=== PATIENT | female | born 1955 | race Caucasian/White ===

== ENCOUNTER 2019-09-09 08:29 | Outpatient (CLI) | payer MEDICARE, MEDICAID, SELFPAY | END 2019-09-09 08:30 | disposition home or self-care (01) | LOC: RAD 08:33 | PROVIDERS: Visit Provider Internal Medicine Critical Care Medicine | DX: J44.9 Chronic obstructive pulmonary disease, unspecified (principal) | CPT/HCPCS: 94010 ==

== ENCOUNTER → 2020-06-15 15:16 | Outpatient (BNVA) | payer MEDICARE, MEDICAID, SELFPAY | PROVIDERS: Visit Provider Nurse Practitioner | DX: S69.90XA Unspecified injury of unspecified wrist, hand and finger(s), initial encounter (principal) | CPT/HCPCS: 73110 ==

== ENCOUNTER → 2023-01-29 14:49 | Outpatient (BNVA) | payer MEDICARE, MEDICAID, SELFPAY | PROVIDERS: PCP Family Medicine | DX: S60.021A Contusion of right index finger without damage to nail, initial encounter (principal); X58.XXXA Exposure to other specified factors, initial encounter | CPT/HCPCS: 73130 ==

== ENCOUNTER 2023-02-19 13:26 | Emergency (ER) | payer MEDICARE, MEDICAID, SELFPAY ==
[2023-02-19] VITALS (7 sets, daily range): BP systolic 118–153; BP diastolic 77–93; PULSE 68–87; RESP 14–18; TEMP 36.7; O2SAT 93–98
--- NOTE | 2023-02-19 14:01 | XR_ITS ---
WS: [id number] EXAMINATION: XR chest 1V portable [id number] REASON FOR EXAM: chest pain COMPARISON: 02/24/2019 ORDER DATE: 02/19/2023 2:01 PM TECHNIQUE: A single, portable frontal chest x-ray was obtained. X-RAY FINDINGS: The lungs are clear. Pleural spaces are clear. No pleural effusions or pneumothorax. Cardiomediastinal silhouette is unremarkable except for very minimal atherosclerotic aortic arch sullivan ge. No evidence for pulmonary edema. Soft tissue and osseous structures are unremarkable. No tubes or lines are present. XR/XR chest 1V portable [id number] IMPRESSION: Unremarkable frontal portable chest x-ray.
[2023-02-19 14:16] LABS: Basophils # 0.1 10^3/uL (0.0-0.1); Basophils % 1.1 %; Eosinophils # 0.5 10^3/uL (0.0-0.8); Eosinophils % 5.9 %; Hematocrit 41.7 % (37.0-47.0); Hemoglobin 13.6 g/dL (11.5-15.3); Lymphocytes # 2.5 10^3/uL (0.8-4.8); Lymphocytes % 31.3 %; Mean Corpuscular HGB Conc 32.6 g/dL (30.0-36.0); Mean Corpuscular Hemoglobin 29.6 pg (28.0-34.0); Mean Corpuscular Volume 90.7 fl (81-99); Mean Platelet Volume 9.7 fL (7.4-10.4); Monocytes # 0.7 10^3/uL (0.2-0.9); Monocytes % 8.7 %; Neutrophils # 4.15 10^3/uL (1.8-7.7); Neutrophils % 52.7 %; Nucleated Red Blood Cells % 0 %; Platelet Count 288 10^3/cmm (130-400); Red Cell Distribution Width 13.4 % (12.1-15.1); White Blood Count 7.9 10^3/uL (4.0-10.0)
[2023-02-19] MEDS: ondansetron 2 mg/ML SDV 2 mL 4 MG IVP (14:16)
[2023-02-19] MEDS: aspirin 81 mg Chew Tablet 324 MG PO (14:17)
[2023-02-19 14:22] LABS: Alanine Aminotransferase 22 U/L (0-33); Albumin Level 4.4 g/dL (3.5-5.2); Alkaline Phosphatase 125 U/L (35-105); Anion Gap 15.2 (5-19); Aspartate Amino Transferase 17 U/L (0-32); Blood Urea Nitrogen 10 mg/dL (8-23); Calcium 9.2 mg/dL (8.5-10.5); Carbon Dioxide 23 mmol/L (22-29); Chloride 103 mmol/L (98-107); Globulin 3.3 g/dL (1.3-4.6); Glomerular Filtration Rate 55.6 mL/min (90-130); Glucose 97 mg/dL (65-115); Osmolality Calculated 283 mOsm/kg (285-295); Potassium 4.2 mmol/L (3.5-5.1); Sodium 137 mmol/L (136-145); Total Bilirubin 0.3 mg/dL (0.15-1.2); Total Protein 7.7 g/dL (6.6-8.7)
[2023-02-19 14:23] LABS: Troponin(5th) Baseline 6 ng/L (0-10)
--- NOTE | 2023-02-19 14:23 | W.ED.CHESTPA ---
HPI - Chest Pain General: Chief Complaint: Chest Pain Stated Complaint: Chest Pains Time Seen by Provider: 02/19/23 14:00 Source: patient Mode of arrival: ambulatory History of Present Illness: 67-year-old female presents emergency room complaining of chest pain. States began about 45 minutes to an hour ago while she was cooking in her kitchen she not doing anything exertional. She not been having any pain prior to that. She does relate she has a history of coronary artery disease she had a heart attack approximately 14 years ago at [facility]. She tells me she had an angiogram done but did not have any stents or bypass. She is not sure why this was the case. She is continuing to have some moderate chest discomfort at this time she reports it radiates up into her jaw. She has not had any associated shortness of breath with that. Also radiates slightly into her back and shoulder blades. MD complaint: chest pain and chest heaviness Onset (ago): minute(s) Timing of current episode: episodic Prior episodes: No Onset: during rest Pain location: left chest Pain radiation: back and jaw/teeth Severity: moderate Quality: aching and heaviness Relieving factors: nothing Exacerbating factors: nothing Associated symptoms: Deny abdominal pain, diaphoresis, dyspnea, fever(s), leg edema, nausea, palpitations, sense of impending doom, syncope or vomiting Review of Systems Const: Denies: fever(s), chills, fatigue, malaise or diaphoresis ENMT: Denies: throat pain, ear or mastoid pain, nasal discharge or nasal congestion Card: Reports: chest pain; Denies: palpitations, irregular heart rhythm, edema, swelling of feet/ankles or syncope Resp: Denies: dyspnea, productive cough or non-productive cough GI: Denies: abdominal pain, nausea or vomiting : Denies: flank pain, difficulty voiding, dysuria, urinary frequency or urinary urgency Musc: Reports: neck pain and back pain Skin/Breast: Denies: rash or pruritus PFS ED PFSH: Social History Smoking and tobacco status: current every day smoker Physical Exam Const: GENERAL APPEARANCE: cooperative and comfortable ORIENTATION/CONSCIOUSNESS: Yes awake, Yes oriented to person, Yes oriented to place and Yes oriented to time HENMT: COMMON NORMALS: normocephalic, atraumatic and hearing grossly normal bilaterally HEAD & SCALP: normocephalic and atraumatic Resp: COMMON NORMALS: normal respiratory effort, No retractions, No use of accessory muscles and clear to auscultation bilaterally AUSCULTATION: clear to auscultation bilaterally Cardio: COMMON NORMALS: regular rate, regular rhythm and No murmurs present (Cardio) RATE: regular rate RHYTHM: regular rhythm GI: COMMON NORMALS: Soft to palpation and No hepatosplenomegaly present AUSCULTATION: Yes normoactive bowel sounds PALPATION: Yes Soft to palpation, No Tenderness to palpation present (GI), No Guarding due to palpation present (GI) and Yes No hepatosplenomegaly present Extremity: COMMON NORMALS: normal to inspection, capillary refill normal, no clubbing, cyanosis or edema, no calf tenderness and no pedal edema Neuro: SENSORIUM/ORIENTATION: Yes oriented to person, Yes oriented to place and Yes oriented to time Skin: COMMON NORMALS: no rashes or lesions noted GENERAL SKIN EXAM: no rashes or lesions noted Course Vital Signs: Vital signs: Vital Signs Temperature 98.0 F 02/19/23 13:35 Pulse Rate 79 02/19/23 17:59 Respiratory Rate 15 02/19/23 17:00 Blood Pressure 129/81 02/19/23 17:59 Pulse Oximetry 93 02/19/23 17:59 Oxygen Delivery Me thod Room Air 02/19/23 17:00 MDM - Chest Pain Medical Decision Making Labs and imaging reviewed. EKGs and serial cardiac enzymes negative. Patient continued to complain of pain while we are doing the chest pain work-up she is given a GI cocktail had complete resolution of all her symptoms. She has no symptoms at all now that she has had the GI cocktail. She like to go home at this point. We will have her stop her omeprazole start pantoprazole 40 mg twice daily and then follow-up with her primary care doctor within the next 7 to 10 days return if she has any recurrence of symptoms. Medical Records I reviewed the patient's medical records. Lab Data I reviewed the patient's lab results. 02/19/23 13:50 02/19/23 13:50 Radiology Impressions Chest X-Ray 02/19/23 14:01 IMPRESSION: Unremarkable frontal portable chest x-ray. Laboratory Results WBC 7.9 10^3/uL (4.0-10.0) 02/19/23 13:50 RBC 4.60 10^6/uL (4.1-5.3) 02/19/23 13:50 Hgb 13.6 g/dL (11.5-15.3) 02/19/23 13:50 Hct 41.7 % (37.0-47.0) 02/19/23 13:50 MCV 90.7 fl (81-99) 02/19/23 13:50 MCH 29.6 pg (28.0-34.0) 02/19/23 13:50 MCHC 32.6 g/dL (30.0-36.0) 02/19/23 13:50 RDW 13.4 % (12.1-15.1) 02/19/23 13:50 Plt Count 288 10^3/cmm (130-400) 02/19/23 13:50 MPV 9.7 fL (7.4-10.4) 02/19/23 13:50 Neut % (Auto) 52.7 % 02/19/23 13:50 Lymph % (Auto) 31.3 % 02/19/23 13:50 [place] % (Auto) 8.7 % 02/19/23 13:50 Eos % (Auto) 5.9 % 02/19/23 13:50 Baso % (Auto) 1.1 % 02/19/23 13:50 Neut # (Auto) 4.15 10^3/uL (1.8-7.7) 02/19/23 13:50 Lymph # (Auto) 2.5 10^3/uL (0.8-4.8) 02/19/23 13:50 [place] # (Auto) 0.7 10^3/uL (0.2-0.9) 02/19/23 13:50 Eos # (Auto) 0.5 10^3/uL (0.0-0.8) 02/19/23 13:50 Baso # (Auto) 0.1 10^3/uL (0.0-0.1) 02/19/23 13:50 Nucleated RBC % (auto) 0 % 02/19/23 13:50 Nucleated RBCs # 0.0 /100WBC 02/19/23 13:50 Sodium 137 mmol/L (136-145) 02/19/23 13:50 Potassium 4.2 mmol/L (3.5-5.1) 02/19/23 13:50 Chloride 103 mmol/L (98-107) 02/19/23 13:50 Carbon Dioxide 23 mmol/L (22-29) 02/19/23 13:50 Anion Gap 15.2 (5-19) 02/19/23 13:50 BUN 10 mg/dL (8-23) 02/19/23 13:50 Creatinine 1.0 mg/dL (0.5-0.9) H 02/19/23 13:50 GFR Calculation 55.6 mL/min (90-130) L 02/19/23 13:50 Glucose 97 mg/dL (65-115) 02/19/23 13:50 Calculated Osmolality 283 mOsm/kg (285-295) L 02/19/23 13:50 Calcium 9.2 mg/dL (8.5-10.5) 02/19/23 13:50 Total Bilirubin 0.3 mg/dL (0.15-1.2) 02/19/23 13:50 AST 17 U/L (0-32) 02/19/23 13:50 ALT 22 U/L (0-33) 02/19/23 13:50 Alkaline Phosphatase 125 U/L (35-105) H 02/19/23 13:50 Troponin T Baseline 6 ng/L (0-10) 02/19/23 13:50 Troponin T 120 Minute 9.69 ng/L (0-10) 02/19/23 15:58 Delta Troponin T 3.69 ABS# (0-10) 02/19/23 15:58 Total Protein 7.7 g/dL (6.6-8.7) 02/19/23 13:50 Albumin 4.4 g/dL (3.5-5.2) 02/19/23 13:50 Globulin 3.3 g/dL (1.3-4.6) 02/19/23 13:50 Discharge Plan Discharge Patient Disposition: Home Clinical Impression: Chest pain due to gastrointestinal reflux disease Condition: Stable Prescriptions: New pantoprazole 40 mg tablet,delayed release (DR/EC) 40 mg PO BID 14 Days Qty: 28 0RF No Action simvastatin 20 mg tablet 20 mg PO DAILY omeprazole 40 mg capsule,delayed release(DR/EC) 40 mg PO DAILY isosorbide dinitrate 30 mg tablet 30 mg PO ONCE Rx Instructions: allow nitrate-free interval of 12-14 hrs per 24-hr period aspirin [Adult Low Dose Aspirin] 81 mg tablet,delayed release (DR/EC) 81 mg PO DAILY clonazepam [Klonopin] 1 mg tablet 1 mg PO BID loratadine 10 mg capsule 10 mg PO DAILY amlodipine 10 mg tablet 10 mg PO DAILY trazodone 150 mg tablet 150 mg PO DAILY venlafaxine 75 mg tablet 75 mg PO DAILY aripiprazole [Abilify] 2 mg tablet 2 mg PO DAILY carvedilol 6.25 mg tablet 12.5 mg PO Q12H 30 Days Qty: 120 0RF Rx Instructions: must administer with a meal/food fluticasone propionate [Flonase Allergy Relief] 50 mcg/actuation spray,suspension 2 spray intranasal DAILY Qty: 16 0RF Rx Instructions: administer into each nostril meloxicam 7.5 mg tablet 7.5 mg PO DAILY tizanidine 2 mg tablet 2 mg PO BID PRN duloxetine 60 mg capsule,delayed release(DR/EC) 60 mg PO BID duloxetine 20 mg capsule,delayed release(DR/EC) 20 mg PO BID Discharge Orders: Discharge ED (Routine); Ordered 02/19/23 Ordered By: Juan Diego Koo Referrals: Channing Valladares [Primary Care Provider] - Discharge Diet: As Directed Patient Instructions: GERD (Gastroesophageal Reflux Disease) (ED), Opioid Safety, Pain Management Activity Restrictions/Additional Instructions: Follow-up with Dr. Armijo within the next 10 to 14 days. Return if you have further problems. Coding Level of Care Code ED French Edge Operator for Brandin Cardoza
[2023-02-19] MEDS: nitroglycerin 1 gm/inch oint Pkt 0.5 INCH TOPICAL (14:32)
[2023-02-19] MEDS: morphine 4 mg/mL SDV 1 mL 2 MG IVP (14:41)
[2023-02-19] MEDS: morphine 4 mg/mL SDV 1 mL IVP (15:51)
--- NOTE | 2023-02-19 16:03 | ECG_ITS ---
[facility] Test Date: 2023-02-19 Pat Name: Landon Wilkerson Department: Room: Gender: Female Claims Administrator: : [id number] Requested By: Juan Diego Cobb Order Number: [id number] Lana MD: Magali Easton M.D. Measurements Intervals [place] Rate: 67 P: 60 [place]: 165 QRS: 48 QRSD: 80 T: 103 QT: 392 QTc: 416 Interpretive Statements SINUS RHYTHM NONSPECIFIC T-WAVE ABNORMALITY Compared to ECG 02/23/2019 23:01:46 Possible ischemia no longer present T-wave abnormality still present Electronically Signed On 02-19-2023 16:28:07 CDT by Magali Easton M.D. [email or web address]
[2023-02-19 16:51] LABS: Troponin 5 2HR 9.69 ng/L (0-10)
[2023-02-19 16:57] LABS: Troponin 5 2HR Delta 3.69 ABS# (0-10)
[2023-02-19] MEDS: lidocaine 2% viscous 15 ML, aluminum-mag hydrox-simethicon 30 ML, sucralfate oral liq 1 GM PO (16:59)
== END 2023-02-19 18:00 | disposition home or self-care (01) ==
PROVIDERS: Emergency Provider Family Medicine; PCP Family Medicine
DX: K21.9 Gastro-esophageal reflux disease without esophagitis (principal); R07.9 Chest pain, unspecified; Z79.82 Long term (current) use of aspirin; F17.210 Nicotine dependence, cigarettes, uncomplicated
CPT/HCPCS: 36415; 71045; 80053; 84484; 85025; 93005; 96374; 96375; 96376; 99285; J2270; J2405

== ENCOUNTER → 2023-04-02 14:07 | Outpatient (BNVA) | payer MEDICARE, MEDICAID, SELFPAY | PROVIDERS: PCP Family Medicine; Visit Provider Podiatrist Foot & Ankle Surgery | DX: L60.3 Nail dystrophy (principal) | CPT/HCPCS: 99203 ==

== ENCOUNTER → 2023-10-11 14:29 | Outpatient (BNVA) | payer OTHER, MEDICAID, SELFPAY | PROVIDERS: PCP Family Medicine; Referring Provider Family Medicine; Visit Provider Obstetrics & Gynecology | DX: R32 Unspecified urinary incontinence (principal) | CPT/HCPCS: 81000 ==